=== PATIENT | female | born 1970 | race Caucasian/White ===

== ENCOUNTER → 2017-02-23 | Outpatient (CLI) | payer OTHER | LOC: BRMIMAGING 11:37 | PROVIDERS: ATTEND Family Medicine | DX: Z12.31 Encounter for screening mammogram for malignant neoplasm of breast (principal) | CPT/HCPCS: G0202 ==

== ENCOUNTER 2017-06-04 10:08 | Day surgery (SDC) | payer OTHER ==
--- NOTE | 2017-06-02 11:26 | GHP ---
[f rep st] PREOP HISTORY AND PHYSICAL DATE OF ADMISSION: 06/04/2017 CHIEF COMPLAINT: Breast hypertrophy. HISTORY OF PRESENTING COMPLAINT: The patient is a 46-year-old woman who is bothered by excessive breast size for the past several years. Specifically symptoms include neck, back, and shoulder pain. She complains of her bra straps digging in and that this interferes significantly with her ability to exercise. PAST SURGICAL HISTORY: Positive for: 1. Tonsillectomy. 2. Septoplasty. 3. 2 laparoscopic surgeries. 4. Hysterectomy. PAST MEDICAL HISTORY: She is a generally healthy nonsmoker. 1. She does have sleep apnea, for which she uses a nighttime CPAP machine. 2. She has a history of irritable bowel syndrome. SOCIAL HISTORY: She is a nonsmoker. MEDICATIONS: Fluoxetine 40 mg p.o. daily. ALLERGIES: None known. PHYSICAL EXAMINATION: GENERAL: She is an overweight 46-year-old female. VITAL SIGNS: She stands 5 feet 7 inches tall and weighs 250 pounds. CARDIOVASCULAR: Heart sounds are normal. RESPIRATORY: Chest is clear, with good air entry. BREASTS: Examination of the breasts reveals obvious mammary hypertrophy, with the right side being significantly larger than the left. IMPRESSION: Fit for procedure. PLAN: Bilateral reduction mammoplasty. /[id number]/MODL MTDD
[~2017-06-04 10:08] MED LIST: LIDO/EPI 1% **for epidural** 30 ML SDV ONE; ceFAZolin 2 GM/DEXTROSE 100 ML IV ONE
[2017-06-04] MEDS ORDERED: LIDOCAINE 1% 2 ML INJ ID PRN (10:45)
[2017-06-04] MEDS ORDERED: LR 1,000 ML IV ONE (10:45)
[2017-06-04] MEDS ORDERED: MIDAZOLAM 2 MG/2 ML VIAL IVP ONE (11:53)
[2017-06-04] MEDS ORDERED: MIDAZOLAM 2 MG/2 ML VIAL ONE (11:54)
[2017-06-04] MEDS ORDERED: SCOPOLAMINE HYDROBROMIDE 1.5 MG PATCH TD ONE (11:54)
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
--- NOTE | 2017-06-04 11:56 | PDHPUP ---
History & Physical Update H&P update statement: This history and physical update is based on an assessment of the patient which was completed after admission or registration (within 24 hours), but prior to the surgery/procedure. H&P update: H&P reviewed & patient examined, no change in patient's condition since H&P completed
[2017-06-04] MEDS ORDERED: PROPOFOL 200 MG/20 ML VIAL ONE (11:57)
[2017-06-04] MEDS ORDERED: fentaNYL 100 MCG/2 ML INJ ONE ×2 (11:57→15:34)
[2017-06-04] MEDS ORDERED: SCOPOLAMINE HYDROBROMIDE 1.5 MG PATCH TD SCH (12:00)
[2017-06-04] MEDS ORDERED: BUPIVACAINE/EPI 0.25% 30 ML SDV ONE (12:12)
[2017-06-04] MEDS ORDERED: OXYCODONE/APAP 5/325 TAB PO PRN ×2 (12:34→19:04)
[2017-06-04] MEDS ORDERED: LR 500 ML IV PRN (12:34)
[2017-06-04] MEDS ORDERED: NALOXONE HCL 0.4 MG/ML INJ IVP PRN ×2 (12:34→15:13)
[2017-06-04] MEDS ORDERED: MEPERIDINE 25 MG/ML SYR IVP PRN (12:34)
[2017-06-04] MEDS ORDERED: PROMETHAZINE HCL 25 MG/ML INJ IVP PRN (12:34)
[2017-06-04] MEDS ORDERED: ONDANSETRON 4 MG/2 ML VIAL IVP PRN (12:34)
[2017-06-04] MEDS ORDERED: ROCURONIUM 50 MG/5 ML VIAL ONE ×2 (12:53)
[2017-06-04] MEDS ORDERED: LIDOCAINE 2% 5 ML SDV ONE (12:54)
[2017-06-04] MEDS ORDERED: DEXAMETHASONE 4 MG/ML VIAL ONE ×2 (12:54)
[2017-06-04] MEDS ORDERED: HYDROmorphONE/DILAUDID 2 MG/ML INJ ONE (13:06)
[2017-06-04] MEDS ORDERED: PHENYLEPHRINE HCL 100 MCG/ML SYR ONE (13:15)
[2017-06-04] MEDS ORDERED: epHEDrine SULFATE 10 MG/ML SYR ONE (13:27)
[2017-06-04] MEDS ORDERED: SUGAMMADEX SODIUM 200 MG/2 ML VIAL IVP ONE ×2 (14:28)
--- NOTE | 2017-06-04 14:55 | POSTOPPROG ---
Post Op Note Date of Operation: 06/04/17 Surgeon: Iban Hein Anesthesiologist: DANIELLA TAMEZ Anesthesia: GET(General Endotracheal) Pre-op Diagnosis: BREAST HYPERTROPHY Post-op Diagnosis: SAME Procedure: BILATERAL BREAST REDUCTION Inf/Abcess present in the surg proc area at time of surgery?: No EBL: Minimal Drains: Estuardo Garcia
[2017-06-04 15:08] VITALS: PULSE 90
--- NOTE | 2017-06-04 15:13 | POSTANESTH ---
Post Anesthetic Evaluation Cardiovascular Status: Normal, Stable Respiratory Status: Normal, Stable Level of Consciousness/Mental Status: Can Participate in Eval Pain Control: Adequate, Prn Tx Ordered Nausea/Vomiting Control: Adequate, Prn Tx Ordered
[2017-06-04] MEDS: fentaNYL 100 MCG/2 ML INJ IVP PRN ×2 (15:36→15:52)
--- NOTE | 2017-06-04 15:43 | GOP ---
[f rep st] OPERATIVE REPORT DATE OF OPERATION: 06/04/2017 SURGEON: Iban Hein MD PREOPERATIVE DIAGNOSIS: Mammary hypertrophy. POSTOPERATIVE DIAGNOSIS: Mammary hypertrophy. PROCEDURE PERFORMED: Bilateral breast reduction. FINDINGS: ESTIMATED BLOOD LOSS: 50 mL. DESCRIPTION OF PROCEDURE: With the patient lying supine under general anesthesia, anterior chest re gion was prepped and draped in usual fashion. Incisions were made according to preoperative marking s for a vertical pattern breast reduction with superomedial pedicle technique. Pedicles were de-epi thelialized and the skin was excised according to preoperative markings. Superior and lateral breas t flaps were developed and the pedicle was thinned down appropriately. A total of 1138 g was remove d from the right side and 710 g from the left side. Bleeders were controlled with electrocautery. A 10 mm flat Estuardo-Garcia drains were placed bilaterally. Dressings of Steri-Strips and gauze were applied. The procedure was tolerated well. /[id number]/MODL
[2017-06-04 19:02] VITALS: BP 132/72; O2SAT 98
[2017-06-04 19:33] VITALS: RESP 17; TEMP 97.9
[2017-06-07] MEDS ORDERED: PATCH REMOVAL 1 EA PATCH TD SCH (11:53)
== END 2017-06-04 19:33 | disposition home or self-care (01) ==
LOC: FSGY 10:08
PROVIDERS: ATTEND Plastic Surgery
PROC: 0HBV0ZZ Excision of Bilateral Breast, Open Approach (ICD-10-PCS; principal; 2017-06-04 12:00)
DX: N62 Hypertrophy of breast (principal); N60.19 Diffuse cystic mastopathy of unspecified breast
CPT/HCPCS: J0690; J1100; J1170; J2250; J2370; J2704; J3010